=== PATIENT | male | born 1960 | race Native Hawaiian/Other Pacific Islander ===

== ENCOUNTER 2022-03-21 09:39 | Outpatient (CLI) | payer OTHER, SELFPAY ==
[2022-03-21 12:44] LABS: Chloride* 107 mmol/L (96-114)
[2022-03-21 12:45] LABS: Potassium* 4.1 mmol/L (3.6-5.1); Sodium* 138 mmol/L (135-149)
[2022-03-21 12:47] LABS: Cholesterol* 171 mg/dL (90-199); Creatinine* 1.2 mg/dL (0.5-1.5)
[2022-03-21 12:48] LABS: Blood Urea Nitrogen* 18 mg/dL (7-30); Calcium* 9.9 mg/dL (8.4-10.6); Carbon Dioxide* 24 mmol/L (20-32); Glucose* 109 mg/dL (60-115); Triglycerides* 192 mg/dL (40-149)
[2022-03-21 12:49] LABS: HDL Cholesterol* 50 mg/dL (>=40); LDL Cholesterol Calculated 83 mg/dL (<100)
[2022-03-21 13:26] LABS: PSA Diagnostic* 5.56 ng/mL (0.10-4.00)
== END 2022-03-21 09:40 | disposition home or self-care (01) ==
PROVIDERS: PCP Family Medicine; Visit Provider Family Medicine
DX: Z00.00 Encounter for general adult medical examination without abnormal findings (principal); R97.20 Elevated prostate specific antigen [PSA]; I10 Essential (primary) hypertension; E78.5 Hyperlipidemia, unspecified; M10.9 Gout, unspecified; N40.0 Benign prostatic hyperplasia without lower urinary tract symptoms; L23.9 Allergic contact dermatitis, unspecified cause
CPT/HCPCS: 80048; 80061; 84153

== ENCOUNTER 2022-08-07 08:12 | Outpatient (CLI) | payer OTHER, SELFPAY ==
[2022-08-07 18:04] LABS: PSA Diagnostic* 5.95 ng/mL (0.10-4.00)
== END 2022-08-07 08:13 | disposition home or self-care (01) ==
LOC: LONREF 12:51
PROVIDERS: PCP Family Medicine; Visit Provider Family Medicine
DX: R97.20 Elevated prostate specific antigen [PSA] (principal)
CPT/HCPCS: 84153

== ENCOUNTER 2023-03-23 09:30 | Outpatient (CLI) | payer OTHER, SELFPAY | END 2023-03-23 09:31 | disposition home or self-care (01) | PROVIDERS: PCP Family Medicine; Visit Provider Family Medicine | DX: Z00.00 Encounter for general adult medical examination without abnormal findings (principal); I10 Essential (primary) hypertension; E78.5 Hyperlipidemia, unspecified; R97.20 Elevated prostate specific antigen [PSA]; M10.9 Gout, unspecified; Z13.0 Encounter for screening for diseases of the blood and blood-forming organs and certain disorders involving the immune mechanism | CPT/HCPCS: 80048; 80061; 84153 ==

== ENCOUNTER 2024-07-22 10:03 | Outpatient (CLI) | payer OTHER, SELFPAY | END 2024-07-22 10:04 | disposition home or self-care (01) | PROVIDERS: PCP Family Medicine; Visit Provider Family Medicine | DX: Z00.00 Encounter for general adult medical examination without abnormal findings (principal); I10 Essential (primary) hypertension; E78.5 Hyperlipidemia, unspecified; R97.20 Elevated prostate specific antigen [PSA]; Z13.0 Encounter for screening for diseases of the blood and blood-forming organs and certain disorders involving the immune mechanism | CPT/HCPCS: 80053; 80061; 84153 ==

== ENCOUNTER 2025-07-28 10:37 | Outpatient (CLI) | payer OTHER, SELFPAY | END 2025-07-28 10:38 | disposition home or self-care (01) | PROVIDERS: PCP Family Medicine; Visit Provider Family Medicine | DX: N40.0 Benign prostatic hyperplasia without lower urinary tract symptoms (principal); E78.2 Mixed hyperlipidemia; I10 Essential (primary) hypertension; R97.20 Elevated prostate specific antigen [PSA] | CPT/HCPCS: 80048; 80061; 84153 ==

== ENCOUNTER 2025-09-12 11:47 | Outpatient (CLI) | payer OTHER, SELFPAY ==
[2025-09-12 13:50] VITALS: BP 158/96; PULSE 92; RESP 22; O2SAT 98
--- NOTE | 2025-09-12 14:01 | W.PM.STED ---
Stress Test Note Date Date of test: 09/12/25 Providers Primary care provider: Julio Vera Stress test physician: Valentín Masters Stress Test Note Stress test ordered: Stress Echo Indication for test: Chest pain Results discussion: This very nice patient presents for the above test, after discussion the risks benefits and side effects of the test, patient would like to continue. Cardiac stress test medical history form is reviewed entirely. Pretest EKG shows normal sinus rhythm with a heart rate of 69, blood pressure 162 in 100, no acute ST wave changes noted. Standard Matt protocol is employed over a time course of 7 minutes 2nd, achieved a metabolic equivalent of a 0.5 Mets, with a max are 139 which is 105% of the maximum. Maximum blood pressure 192 on 86. Review of the tracing shows no dysrhythmias, no ST wave changes suggestive of ischemia, he recovered normally. Conditioning was felt to be good Impression: Negative electrographic portion of stress echo, await echo imaging, this will be read by Cardiology. Follow up suggested: Await echo imaging this will be read by Cardiology, patient recovered well there were no complications, left this testing facility in good condition,
== END 2025-09-12 11:48 | disposition home or self-care (01) ==
LOC: STRESS 11:48
PROVIDERS: PCP Family Medicine; Visit Provider Family Medicine
DX: R07.9 Chest pain, unspecified (principal); R06.09 Other forms of dyspnea
CPT/HCPCS: 93016; 93325; 93351